=== PATIENT | male | born 1945 | race Caucasian/White ===

== ENCOUNTER → 2018-09-11 | Outpatient (CLI) | payer MEDICARE, OTHER ==
[2014-12-16 11:38] VITALS: BP 131/87
[~2018-09-11] MED LIST: BENADRYL25 M2 PO; CRESTOR 10MG10 MG PO; GOOD SENSE ASP325 M1 PO; LOPRESSOR50 MG PO; PLAVIX 75MG TAB75 MG PO
[2018-09-11 11:04] LABS: EOS # 0.1 (0.04-0.40); EOS % 1.1 % (0.0-4.0); HEMATOCRIT 51.7 % (42.0-52.0); HEMOGLOBIN 17.1 g/dL (13.5-18.0); LYMPH# 1.6 (1.50-4.00); MEAN CELL VOLUME 92 fl (78-100); MEAN CORPUSCULAR HEMOGLOBIN 30 pg (27-31); MEAN CORPUSCULAR HGB CONC 33 g/dL (33-37); MEAN PLATELET VOLUME 10.6 fl (7.4-10.4); NEU # 6.8 (1.40-6.50); PLATELET COUNT 168 K/mm3 (130-400); RED BLOOD COUNT 5.63 M/mm3 (4.20-5.60); RED CELL DISTRIBUTION WIDTH 12.9 % (11.5-14.5); WHITE BLOOD COUNT 9.7 K/mm3 (4.8-10.8)
[2018-09-11 12:08] LABS: ALBUMIN 4.6 g/dL (3.5-5.0); CALCIUM 9.7 mg/dL (8.4-10.2); POTASSIUM 4.2 mmol/L (3.6-5.0); TOTAL BILIRUBIN 1.3 mg/dL (0.2-1.3); TOTAL PROTEIN 7.1 g/dL (6.3-8.2)
[2018-09-11 12:09] LABS: ERYTHROCYTE SEDIMENTATION RATE 1 mm/hr (0-20)
[2018-09-11 23:35] LABS: TESTOSTERONE 230 ng/dL (221-716)
== END ==
LOC: LAB 10:51
PROVIDERS: Internal Medicine
DX: Z12.5 Encounter for screening for malignant neoplasm of prostate (principal); Z12.11 Encounter for screening for malignant neoplasm of colon; I25.10 Atherosclerotic heart disease of native coronary artery without angina pectoris; I10 Essential (primary) hypertension; E78.5 Hyperlipidemia, unspecified; N52.9 Male erectile dysfunction, unspecified

== ENCOUNTER → 2018-10-20 | Outpatient (CLI) | payer MEDICARE, OTHER ==
[2014-12-16 11:38] VITALS: BP 131/87
[2018-10-20 23:36] LABS: FOLLICLE STIMULATING HORMONE 3.4 mIU/mL (1.0-12.0); LUTENIZING HORMONE 2.4 mIU/mL (0.6-12.1); PROLACTIN 4.2 ng/mL (3.5-19.4)
== END ==
LOC: LAB 09:34
PROVIDERS: Internal Medicine
DX: E23.0 Hypopituitarism (principal)